=== PATIENT | male | born 1970 | race Caucasian/White ===

== ENCOUNTER → 2024-01-17 12:40 | Outpatient (REF) | payer OTHER, SELFPAY | LOC: RAD 12:40 | PROVIDERS: ATTENDING PHYSICIAN Family Medicine | DX: S69.91XA Unspecified injury of right wrist, hand and finger(s), initial encounter (principal) | CPT/HCPCS: 73130; 73140 ==

== ENCOUNTER → 2025-02-04 11:30 | Outpatient (REF) | payer OTHER, SELFPAY | LOC: HWRAD 11:30 | PROVIDERS: ATTENDING PHYSICIAN Family Medicine | DX: M54.50 Low back pain, unspecified (principal) | CPT/HCPCS: 72110 ==

== ENCOUNTER → 2025-03-18 08:00 | Outpatient (REF) | payer OTHER, SELFPAY | LOC: HWRCS 08:00 | PROVIDERS: ATTENDING PHYSICIAN Family Medicine | DX: I45.2 Bifascicular block (principal) | CPT/HCPCS: 93306 ==